=== PATIENT | female | born 1940 | race Two or more races ===

== ENCOUNTER 2021-10-19 08:15 | Inpatient (IN) | payer OTHER ==
[~2021-10-19] VITALS: Ht 152.4 cm; Wt 63.5 kg
[2021-10-19] MEDS ORDERED: ZOCOR40 MG PO (10:45)
[2021-10-19] MEDS ORDERED: TOPROL XL100 M1 PO (10:45)
[2021-10-19] MEDS ORDERED: ZOLOFT50 MG PO (10:45)
[2021-10-19] MEDS ORDERED: NORVASC2.5 M1 PO (10:45)
[2021-10-19] MEDS ORDERED: METFORMIN HCL500 M2 PO (10:46)
[2021-10-19] MEDS ORDERED: LEVOTHYROXINE25 MCG PO (10:46)
[2021-10-19] MEDS ORDERED: CITRACAL + D M1 EACH PO (10:47)
[2021-10-19] MEDS ORDERED: CRESTOR20 MG PO (10:47)
[2021-10-19] MEDS ORDERED: SYNTHROID112 MCG PO (10:48)
[2021-10-23] MEDS ORDERED: OMEPRAZOLE40 MG (08:35)
[2021-10-23] MEDS ORDERED: DIAZEPAM10 MG (08:35)
[2021-10-23] MEDS ORDERED: LOSARTAN POTAS100 MG (08:35)
[2021-10-25] MEDS ORDERED: PERCOCET 5-3251 EACH PO (15:21)
[2021-10-25] MEDS ORDERED: CEFADROXIL500 MG PO (15:21)
[2021-10-25] MEDS ORDERED: ELIQUIS2.5 MG PO (15:21)
== END 2021-10-29 15:09 | DRG 470 ==
LOC: O/R 10-23 06:00 → SURH 10-23 06:00 → SURG 10-23 13:08 → SURH 10-23 14:32
PROVIDERS: ADMIT Orthopaedic Surgery; ATTEND Orthopaedic Surgery
PROC: 0SRC0J9 Replacement of Right Knee Joint with Synthetic Substitute, Cemented, Open Approach (ICD-10-PCS; principal; 2021-10-23 07:00)
PROC: B24BZZZ Ultrasonography of Heart with Aorta (ICD-10-PCS; 2021-10-26)
PROC: BW24ZZZ Computerized Tomography (CT Scan) of Chest and Abdomen (ICD-10-PCS; 2021-10-26)
PROC: 30233N1 Transfusion of Nonautologous Red Blood Cells into Peripheral Vein, Percutaneous Approach (ICD-10-PCS; 2021-10-27)
DX: M17.11 Unilateral primary osteoarthritis, right knee (principal); D62 Acute posthemorrhagic anemia; M22.11 Recurrent subluxation of patella, right knee; R09.02 Hypoxemia; I10 Essential (primary) hypertension; E03.8 Other specified hypothyroidism; E11.9 Type 2 diabetes mellitus without complications; Z79.4 Long term (current) use of insulin; F32.89 Other specified depressive episodes; Z20.822 Contact with and (suspected) exposure to COVID-19